=== PATIENT | male | born 1965 | race Caucasian/White ===

== ENCOUNTER 2017-07-21 22:31 | Emergency (ER) | payer SELFPAY ==
[~2017-07-21] VITALS: Ht 180.3 cm; Wt 70.3 kg
--- NOTE | ~2017-07-21 | CR63 ---
[facility] A Service of [facility] RADIOLOGY TEXT RESULTS PATIENT: BYRON PENDLETON LOCATION: SED : 65 UNIT #: [id number] AGE: [address]: Chaka Leahy MD SEX: M ORDER DR: [id number] [place] [id number] E MR#: [id number] Acc #: [id number] NAME: BYRON PENDLETON : 1965 SEX: M STUDY DATE/TIME: 07/22/2017 0:42 UNIT: SED ROOM: STUDY DESCRIPTION: CR Chest 2 View Attending Physician: Chaka Leahy M.D. Ordering Physician: Chaka Leahy M.D. Primary Care Physician: No Primary Care Physician MEDICAL IMAGING REPORT This report is preliminary unless electronic signature is present. EXAM Chest x-ray, 07/22/2017. HISTORY 52-year-old male in the ED complaining of 4-day history of fever and body aches. TECHNIQUE PA and lateral upright chest series. FINDINGS Moderately dense patchy airspace infiltrate in the left lower lobe compatible with pneumonia. Remaining portions of both lungs are clear. Possible tiny left pleural effusion. Heart size and pulmonary vascularity are within normal limits. IMPRESSION 1. Airspace infiltrate in the left lower lobe compatible with pneumonia. Clinical laboratory correlation recommended. 2. The remainder of the examination is negative. Dictated by... Chavo Simon M.D. THIS IS AN ELECTRONICALLY VERIFIED REPORT Chavo Simon M.D. at 07/22/2017 10:30 PM ROSITAW/gabrielle TD: 07/22/2017 08:16 JOB #: [id number] MEDICAL IMAGING REPORT [facility] A Service [facility] RADIOLOGY TEXT RESULTS PATIENT: BYRON PENDLETON LOCATION: SED : 65 UNIT #: [id number] AGE: [address]: Chaka Leahy MD SEX: M ORDER DR: Page 1 of 1
[~2017-07-21 22:31] MED LIST: DOLOBID500 MG PO; NO MEDICATIONS
[2017-07-21 23:55] LABS: BASOPHIL% 0.2 % (0-2.5); HEMATOCRIT 43.3 % (38.0-50.0); HEMOGLOBIN 14.7 gm/dL (13.0-16.0); LYMPHOCYTE# 1.2 X10e3 (1.0-3.5); LYMPHOCYTE% 21.4 % (17.0-45.0); MEAN CELL VOLUME 95.9 FL (83-96); MEAN CORPUSCULAR HEMOGLOBIN 32.5 PG (28-34); MEAN CORPUSCULAR HGB CONC 33.9 g/dL (30-36); MEAN PLATELET VOLUME 9.4 FL (6.5-11.5); MONOCYTE# 0.3 X10e3 (0-1.0); MONOCYTE% 5.9 % (3.0-12.0); NEUTROPHIL% 72.5 % (40-75); PLATELET COUNT 83 X10e3 (140-420); RED BLOOD COUNT 4.52 X10e (3.90-5.60); RED CELL DISTRIBUTION WIDTH 14.9 % (11.0-15.5); WHITE BLOOD COUNT 5.5 X10e3 (4.0-10.5)
[2017-07-21 23:56] LABS: DIFF IND NO
[2017-07-22 00:06] LABS: INFLUENZA A NEG (NEG); INFLUENZA B NEG (NEG)
[2017-07-22 00:09] LABS: ALBUMIN SERUM 3.7 g/dL (3.5-5.0); BILIRUBIN, DIRECT 0.1 mg/dL (0.0-0.2); BILIRUBIN,INDIRECT 0.2 mg/dL (0.0-0.9); BILIRUBIN,TOTAL 0.3 mg/dL (0.2-2.0); BUN/CREATININE RATIO 17.77; CALCIUM SERUM 8.2 mg/dL (8.4-10.2); CREATININE SERUM 0.9 mg/dL (0.6-1.4); GLOM FILT RATE Estimated 97.9 mL/min (>60); PROTEIN TOTAL SERUM 6.4 g/dL (6.0-8.3)
[2017-07-22 00:18] LABS: URINE SOURCE CLEAN CATCH
[2017-07-22 00:22] LABS: URINE APPEARANCE CLEAR; URINE BILIRUBIN NEG (NEG); URINE BLOOD TRACE-INTACT (NEG); URINE COLOR YELLOW; URINE GLUCOSE NEG (NORM); URINE KETONE NEG (NEG); URINE LEUKOCYTE ESTERASE NEG (NEG); URINE NITRATE NEG (NEG); URINE PH 5.5 (5-8); URINE PROTEIN 1+ (NEG); URINE SPECIFIC GRAVITY >=1.030 (1.003-1.035); URINE UROBILINOGEN 0.2 MG/DL (NORM)
[2017-07-22 00:23] LABS: MICRO INDICATED? YES
[2017-07-22 00:25] LABS: CULTURE INDICATED? YES; URINE BACTERIA 1+ (NEG); URINE MUCUS PRESENT; URINE SQUAMOUS EPITHELIAL CELL OCCAS /[HPF]; URINE WBC 0-2 /[HPF] (0-5)
== END 2017-07-22 02:35 | disposition home or self-care (01) ==
LOC: SED 22:31
PROVIDERS: Emergency Medicine
DX: J18.1 Lobar pneumonia, unspecified organism (principal); D69.6 Thrombocytopenia, unspecified; F17.200 Nicotine dependence, unspecified, uncomplicated
CPT/HCPCS: 36415; 71020; 80048; 80076; 81003; 83605; 85025; 86308; 87040; 87086; 87651; 87804; 96361; 96365; 96375; 99284; J0696; J1885